=== PATIENT | male | born 1940 | race Caucasian/White ===

== ENCOUNTER → 2017-01-14 | Outpatient (CLI) | payer MEDICARE ==
--- NOTE | 2017-01-14 10:58 | CARDIOVASCULAR REPORT ---
"Cerebrovascular Exam IMPRESSIONS 1. The bilateral vertebral arteries are patent with normal antegrade flow. 2. Study suggests 20-49%(lower end of scale)stenosis involving the right internal carotid artery. 3. Study suggests less than 20% stenosis involving the left internal carotid artery. History: Coronary artery disease. Risk factors: Hypertension. Hyperlipidemia. Carotid duplex study. Complete study and Doppler flow study including spectral analysis, color and ball scale imaging. Location: Vascular laboratory. Patient status: Outpatient. Tables: Arterial flow: + +--------+--------+ |Location |V sys |V ed | + +--------+--------+ |Right CCA - proximal|122cm/s |23.6cm/s| + +--------+--------+ |Right CCA - distal |89.6cm/s|18.1cm/s| + +--------+--------+ |Right ECA |174cm/s |--------| + +--------+--------+ |Right ICA - proximal|113cm/s |19.6cm/s| + +--------+--------+ |Right ICA - mid |83.3cm/s|23.6cm/s| + +--------+--------+ |Right ICA - distal |132cm/s |38.7cm/s| + +--------+--------+ |Right vertebral |53cm/s |--------| + +--------+--------+ |Left CCA - proximal |138cm/s |29.2cm/s| + +--------+--------+ |Left CCA - distal |130cm/s |29.2cm/s| + +--------+--------+ |Left ECA |95.1cm/s|--------| + +--------+--------+ |Left ICA - proximal |77.7cm/s|21cm/s | + +--------+--------+ |Left ICA - mid |99.5cm/s|33.2cm/s| + +--------+--------+ |Left ICA - distal |93.4cm/s|29.7cm/s| + +--------+--------+ |Left vertebral |73.9cm/s|--------| + +--------+--------+ Velocity ratios: + + + + + + | |Right, V sys|Right, V ed|Left, V sys|Left, V ed| + + + + + + |Max ICA/dist CCA|1.47 |2.14 |0.77 |1.14 | + + + + + + (Report amended ) Electronically signed by: Jase Beíntez [id number]"
--- NOTE | 2017-01-14 20:33 | RADIOLOGY REPORT PS360 ---
PROCEDURE: 2-D M-mode and color Doppler study INDICATIONS FOR THE TEST: Chest pain COPD Heart Murmur Tobacco Smoking Palpitations Fatigue Syncope Edema+ Hypertension+Diabetes Mellitus+ Rheumatic Fever SOB MORENO+Obesity Hyperlipidemia+ Family History HD+ Additional History stents PATIENT INFORMATION HEIGHT: 64 WEIGHT: 170 GENDER: Male B/P: 146/69 2-D/M-MODE INTERPRETATION: 2-D MEASUREMENTS OBSERVED VALUES IN CMS Right Ventricular Dimension (RVDd) 2.8 Interventricular Septum (Thickness)(IVsd) 1.1 Left Ventricular Internal Dimensions(LVIDd) 3.8 Left Ventricular Posterior Wall (Thickness)(LVPWd) 1.2 Aortic Root 3.4 Aortic Cusp Separation 2.2 Left Atrial Dimensions (LAD) 4.4 2D 1. Left atrium is mildly enlarged, left ventricle is normal size, there is mild concentric left ventricular hypertrophy, visually estimated ejection fraction 55% with no obvious regional wall motion abnormality. 2. The right atrium is normal size, right ventricle is mildly enlarged with normal contractility. 3. The aortic valve is minimally thickened and fibrosed. 4. The mitral and tricuspid valve leaflets are minimally thickened. 5. The pulmonic valve is poorly visualized. 6. No significant pericardial effusion noted. DOPPLER INTERROGATION: Doppler interrogation of the aortic, mitral and tricuspid valvular presence of mild aortic, mild mitral and tricuspid regurgitation, tricuspid regurgitant jet velocity is insufficient for calculation of the right ventricular systolic pressure, grade 1 diastolic dysfunction seen with tissue Doppler evidence of raised left atrial pressure. CONCLUSION: 1. Mildly enlarged left atrium, normal left ventricular size, there is mild concentric left ventricular hypertrophy, visually estimated ejection fraction 55% with no obvious regional wall motion abnormality, grade 1 diastolic dysfunction seen with tissue Doppler evidence of raised left atrial pressure. 2. Mild mitral, mild aortic and mild tricuspid regurgitation. 3. No significant pericardial effusion noted.
--- NOTE | 2017-01-15 09:43 | RADIOLOGY REPORT PS360 ---
CARDIOLITE SPECT MYOCARDIAL PERFUSION SCAN, REST AND STRESS: EXERCISE STRESS [facility] REVIEW QGS EF AND WALL MOTION EVALUATION: QPS - PERFUSION EVALUATION HISTORY: cad and angina DOSE: 10.96 mCi technetium 99m mibi intravenously at rest followed by 30.1 mCi technetium 99m mibi following the intravenous ministration of 0.4 mg of Lexiscan. Resting blood pressure is 146/69. Stress blood pressure 132/64. FINDINGS: Ejection fraction is calculated to be 68 Stress images reveal severely decreased activity in the inferior wall wall rest images reveal moderately decreased activity.. 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 Normal ejection fraction and normal wall motion. This is a high risk abnormal Myoview
--- NOTE | 2017-01-15 09:43 | RADIOLOGY REPORT PS360 ---
CARDIOLITE SPECT MYOCARDIAL PERFUSION SCAN, REST AND STRESS: EXERCISE STRESS [facility] REVIEW QGS EF AND WALL MOTION EVALUATION: QPS - PERFUSION EVALUATION HISTORY: cad and angina DOSE: 10.96 mCi technetium 99m mibi intravenously at rest followed by 30.1 mCi technetium 99m mibi following the intravenous ministration of 0.4 mg of Lexiscan. Resting blood pressure is 146/69. Stress blood pressure 132/64. FINDINGS: Ejection fraction is calculated to be 68 Stress images reveal severely decreased activity in the inferior wall wall rest images reveal moderately decreased activity.. 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 Normal ejection fraction and normal wall motion. This is a high risk abnormal Myoview
== END ==
LOC: RAD 07:10
DX: I25.10 Atherosclerotic heart disease of native coronary artery without angina pectoris (principal); I20.8 Other forms of angina pectoris; I65.23 Occlusion and stenosis of bilateral carotid arteries
CPT/HCPCS: A9502; J2785

== ENCOUNTER → 2017-01-18 | Day surgery (SDC) | payer MEDICARE ==
[2017-01-18 07:53] LABS: HEMOGLOBIN 12.3 g/dL (14.1-18.0); LYMPH # 1.4 K/mm3 (0.7-4.5)
[2017-01-18 07:58] LABS: BUN 57 mg/dL (7-18); GFR (ESTIMATED) 24 ML/MIN (>60)
--- NOTE | 2017-01-18 10:57 | RADIOLOGY REPORT PS360 ---
CARDIAC CATHETERIZATION DATE OF CATHETERIZATION:01/18/2017 8:24 AM PROCEDURES: 1. Left heart catheterization 2. Left ventriculogram 3. Selective coronary angiogram 4. Drug-eluting stent deployment to the proximal circumflex artery INDICATION FOR TEST: 1. Coronary artery disease 2. High risk abnormal Myoview 3. Angina pectoris class III and IV Informed consent was obtained prior to the procedure. COMPLICATIONS: None ESTIMATED BLOOD LOSS: Less than 10 ml. TECHNIQUE: One percent lidocaine used to anesthetize the right anterior aspect of the wrist. The right radial artery was accessed via the Seldinger technique. A 6 [place] sheath was placed in the right radial artery. 2.5 mg of verapamil, 800 mcg of nitroglycerin and 5000 U Heparin were given through the arterial sheath. The trap catheter was also used to perform left heart catheterization left ventriculogram and selective coronary angiogram. 6 cc of contrast was used for the diagnostic procedure. At the end of the diagnostic procedure an additional 3000 units of heparin was administered intravenously giving an ACT of 347 seconds. Patient had artery taken Plavix this morning. An [employer] left guide catheter was placed in the left main artery and under fluoroscopic guidance a BMW wire was placed in the distal circumflex artery. A 2.5 x 12 mm resolute Yousuf stent was deployed at 18 sherri in the proximal circumflex artery reducing the 80-90% stenosis to 0%. LETICIA-3 flow was present before and after the procedure. At the end of the procedure the apparatus was removed the sheath was removed good hemostasis was achieved using TR banding patient was transferred [facility] in stable condition ANGIOGRAPHIC RESULTS: 1. The left main artery normal 2. The left anterior descending artery has a stent in the proximal to mid segment which is widely patent free of in-stent restenosis with excellent proximal and distal transitioning. 3. The circumflex artery is a nondominant yet still large vessel which has a proximal concentric 80-90% stenosis 4. The right coronary artery is a dominant vessel and has a stent in the very ostial proximal segment which is widely patent free of in-stent restenosis with excellent proximal and distal transitioning. Distal to the stent there is a 30% tortuous bend along with an additional 40% tortuous bend with normal distal vessel 5. The GONZALEZ ventriculogram reveals normal 65% 6. The left ventricular end-diastolic pressure 10 mmHg IMPRESSION: 1. Widely patent stent in the proximal to mid LAD 2. Widely patent stent in the proximal dominant right coronary artery nonflow limiting disease distally 3. Severe disease in the proximal large circumflex artery 4. Successful stenting of the proximal circumflex artery, 80-90% stenosis reduced to 0% with 1 drug-eluting stent 5. Normal ejection fraction 6. Normal left ventricular end-diastolic pressure PLAN: 1. Aspirin and Plavix 2. LDL less than 55 3. Risk factor modification 4. Cardiac rehabilitation 5. Avoidance of tobacco products
[2017-01-18 11:40] VITALS: BP 139/71
[2017-01-18 11:55] VITALS: BP 97/39
[2017-01-18 14:21] VITALS: BP 143/72
== END ==
LOC: CATHLAB 07:07
PROVIDERS: Internal Medicine
PROC: B2111ZZ Fluoroscopy of Multiple Coronary Arteries using Low Osmolar Contrast (ICD-10-PCS; 2017-01-18)
PROC: B2151ZZ Fluoroscopy of Left Heart using Low Osmolar Contrast (ICD-10-PCS; 2017-01-18)
PROC: 027034Z Dilation of Coronary Artery, One Artery with Drug-eluting Intraluminal Device, Percutaneous Approach (ICD-10-PCS; 2017-01-18)
PROC: 4A023N7 Measurement of Cardiac Sampling and Pressure, Left Heart, Percutaneous Approach (ICD-10-PCS; principal; 2017-01-18 12:45)
DX: I25.119 Atherosclerotic heart disease of native coronary artery with unspecified angina pectoris (principal); Z72.0 Tobacco use; R94.39 Abnormal result of other cardiovascular function study; I11.9 Hypertensive heart disease without heart failure
CPT/HCPCS: C1725; C1769; C1876; J1644; Q9967